=== PATIENT | female | born 1965 | race Caucasian/White ===

== ENCOUNTER 2020-11-09 05:30 | Day surgery (SDC) | payer OTHER ==
[~2020-11-09 05:30] MED LIST: COZAAR100 MG PO; HYDRALAZINE HCL25 MG PO; NORVASC10 MG PO
[2020-11-09] MEDS ORDERED: PERCOCET 5-3251 EACH PO (08:18)
[2020-11-09] MEDS ORDERED: COLACE100 MG PO (08:18)
== END 2020-11-09 13:40 | disposition home or self-care (01) ==
LOC: CIR.AMB 05:30
PROVIDERS: ATTEND Surgery
DX: K64.5 Perianal venous thrombosis (principal); Z20.822 Contact with and (suspected) exposure to COVID-19